=== PATIENT | male | born 1980 | race Caucasian/White ===

== ENCOUNTER 2019-12-22 12:02 | Outpatient (CLI) | payer BC, OTHER, SELFPAY ==
--- NOTE | 2019-12-22 12:22 | XR_ITS ---
WS: [id number] LEFT KNEE: 3 VIEW(S) TECHNIQUE: AP, oblique(s) and lateral. HISTORY: KNEE PAIN, CHRONIC, MEDIAL MENISCUS TEAR, LEFT COMPARISON: None available. No fracture or dislocation. No joint space narrowing or osteophytes. No joint effusion. Mild soft tissue thickening along the LEFT MCL. XR/XR knee LT 3V* [id number] IMPRESSION: Mild soft tissue thickening along the LEFT MCL. May be secondary to acute injur y and sprain.
== END 2019-12-22 12:03 | disposition home or self-care (01) ==
LOC: RADWPI 12:08
PROVIDERS: Family Provider Electrodiagnostic Medicine; PCP Electrodiagnostic Medicine; Visit Provider Electrodiagnostic Medicine
DX: M25.562 Pain in left knee (principal); S83.242A Other tear of medial meniscus, current injury, left knee, initial encounter; X58.XXXA Exposure to other specified factors, initial encounter
CPT/HCPCS: 73562